=== PATIENT | female | born 1950 | race Caucasian/White ===

== ENCOUNTER 2022-02-01 11:51 | Inpatient (IN) | payer MEDICARE ==
[~2022-02-01] VITALS: Ht 152.4 cm; Wt 52.6 kg
[2022-02-01] MEDS ORDERED: DILTIAZEM HCL 5 MG/ML 5 ML VIAL IV ONE (12:45)
[2022-02-01 12:56] LABS: BASOPHILS # (AUTO) 0.1 (0.0-0.1); BASOPHILS % 0.8 % (0.0-1.0); EOSINOPHILS # (AUTO) 0.5 (0.0-0.4); EOSINOPHILS % 3.3 % (0.0-6.0); HEMOGLOBIN 14.8 g/dL (12.0-16.0); LYMPHOCYTES # (AUTO) 2.6 (1.0-3.2); LYMPHOCYTES % 17.1 % (18.0-39.1); MEAN CORPUSCULAR HEMOGLOBIN 28.7 pg (28-32); MEAN CORPUSCULAR HGB CONC 32.9 g/dL (31-35); MEAN CORPUSCULAR VOLUME 87.4 fL (81-99); MONOCYTES # (AUTO) 1.1 (0.2-0.8); MONOCYTES % 7.1 % (4.4-11.3); NEUTROPHILS # (AUTO) 10.7 (2.1-6.9); NEUTROPHILS % 71.3 % (38.7-80.0); PLATELET COUNT 324 x10e3/uL (140-360); RED BLOOD COUNT 5.15 x10e6/uL (3.6-5.1); RED CELL DISTRIBUTION WIDTH 13.4 % (11.7-14.4)
[2022-02-01] MEDS ORDERED: SODIUM CHLORIDE 0.9% 1000ML 1,000 ML IV SCH (13:00)
[2022-02-01 13:15] LABS: ALBUMIN 3.9 g/dL (3.5-5.0); ALBUMIN/GLOBULIN RATIO 0.9 (0.8-2.0); ANION GAP 17.9 mmol/L (8-16); CALCIUM 9.6 mg/dL (8.4-10.2); CREATININE, SERUM 0.77 mg/dL (0.57-1.11); POTASSIUM 3.9 mmol/L (3.5-5.1)
[2022-02-01 13:45] LABS: FREE T4 (FREE THYROXINE) 1.07 ng/dL (0.8-1.8); THYROID STIMULATING HORMONE 2.026 uIU/mL (0.350-4.940)
[2022-02-01] MEDS ORDERED: SODIUM CHLORIDE FLUSH 10 ML SYR INJ PRN (16:00)
[2022-02-01] MEDS ORDERED: ASPIRIN 81 MG CHEW TAB PO ONE (16:00)
[2022-02-01 18:27] VITALS: BP 283/128
[2022-02-01 18:28] VITALS: BP 227/120
[2022-02-01] MEDS ORDERED: ZOLPIDEM TARTRATE 5 MG TAB PO PRN (19:45)
[2022-02-01] MEDS ORDERED: ONDANSETRON HCL INJ 2MG/ML 2ML 2 MG/ML VIAL IV PRN (19:45)
[2022-02-01] MEDS: DILTIAZEM HCL 125 ML IV SCH (19:57)
[2022-02-01 19:59] VITALS: BP 238/107
[2022-02-01] MEDS ORDERED: ACETAMINOPHEN 650 MG SUPP PR PRN (20:00)
[2022-02-01 20:37] LABS: CREATINE KINASE MB 5.1 ng/mL (0-5.0)
[2022-02-01] MEDS ORDERED: VALSARTAN 160 MG TAB PO ONE (20:45)
[2022-02-01] MEDS ORDERED: LABETALOL HCL 5 MG/ML 20ML VIAL IV STA (22:07)
[2022-02-01] MEDS ORDERED: LABETALOL HCL 20 ML ONE (22:22)
[2022-02-01 22:52] VITALS: BP 174/63
[2022-02-01 23:00] VITALS: BP 196/98
[2022-02-01 23:07] VITALS: BP 174/63
[2022-02-02] VITALS (48 sets, daily range): BP systolic 94–211; BP diastolic 47–163
[2022-02-02] MEDS: LABETALOL HCL 5 MG/ML 20ML VIAL IV PRN ×2 (03:06→07:23)
[2022-02-02] MEDS: DILTIAZEM HCL 125 ML IV SCH (03:59)
[2022-02-02] MEDS ORDERED: DILTIAZEM HCL IV 5MG/ML 25 ML VIAL ONE (04:09)
[2022-02-02] MEDS ORDERED: SODIUM CHLORIDE 0.9% 100 ML ONE (04:09)
[2022-02-02 05:00] LABS: BASOPHILS # (AUTO) 0.1 (0.0-0.1); BASOPHILS % 0.8 % (0.0-1.0); EOSINOPHILS # (AUTO) 0.5 (0.0-0.4); EOSINOPHILS % 3.2 % (0.0-6.0); HEMATOCRIT 42.4 % (34.2-44.1); LYMPHOCYTES # (AUTO) 3.7 (1.0-3.2); LYMPHOCYTES % 23.9 % (18.0-39.1); MEAN CORPUSCULAR HEMOGLOBIN 28.6 pg (28-32); MEAN CORPUSCULAR VOLUME 86.5 fL (81-99); MONOCYTES # (AUTO) 1.3 (0.2-0.8); MONOCYTES % 8.7 % (4.4-11.3); NEUTROPHILS # (AUTO) 9.7 (2.1-6.9); NEUTROPHILS % 62.9 % (38.7-80.0); PLATELET COUNT 319 x10e3/uL (140-360); RED CELL DISTRIBUTION WIDTH 13.4 % (11.7-14.4)
[2022-02-02 05:32] LABS: ANION GAP 13.4 mmol/L (8-16); CALCIUM 9.1 mg/dL (8.4-10.2); CREATININE, SERUM 0.74 mg/dL (0.57-1.11); MAGNESIUM 2.4 MG/DL (1.3-2.1); POTASSIUM 3.4 mmol/L (3.5-5.1)
[2022-02-02] MEDS ORDERED: POTASSIUM CITRATE ER 10 MEQ TAB PO ONE (08:00)
[2022-02-02] MEDS ORDERED: ALPRAZOLAM 0.25 MG TAB PO PRN (08:15)
[2022-02-02] MEDS ORDERED: POTASSIUM CHLORIDE 10MEQ EA PO ONE (08:15)
[2022-02-02] MEDS ORDERED: VALSARTAN 160 MG TAB PO SCH (09:00)
[2022-02-02] MEDS ORDERED: CARVEDILOL 12.5 MG TAB PO SCH (09:00)
[2022-02-02] MEDS: CARVEDILOL 12.5 MG TAB PO SCH ×2 (09:15→17:41)
[2022-02-02] MEDS: TRIAMTERENE/HCTZ 37.5-25 MG TAB PO SCH (09:15)
[2022-02-02] MEDS: VALSARTAN 160 MG TAB PO SCH (09:15)
[2022-02-02] MEDS: ASPIRIN 81 MG ENTERIC COATED PO SCH (09:15)
[2022-02-02 15:43] LABS: CREATINE KINASE MB 2.2 ng/mL (0-5.0)
[2022-02-02] MEDS ORDERED: ENOXAPARIN SOD INJ 40 MG/0.4 ML SYR SC SCH (17:00)
[2022-02-03] VITALS (22 sets, daily range): BP systolic 158–249; BP diastolic 48–185
[2022-02-03] MEDS: LABETALOL HCL 5 MG/ML 20ML VIAL IV PRN (04:33)
[2022-02-03 04:59] LABS: BASOPHILS # (AUTO) 0.1 (0.0-0.1); BASOPHILS % 0.8 % (0.0-1.0); EOSINOPHILS # (AUTO) 0.6 (0.0-0.4); EOSINOPHILS % 5.2 % (0.0-6.0); HEMATOCRIT 42.3 % (34.2-44.1); HEMOGLOBIN 13.9 g/dL (12.0-16.0); LYMPHOCYTES % 40.9 % (18.0-39.1); MEAN CORPUSCULAR HEMOGLOBIN 28.3 pg (28-32); MEAN CORPUSCULAR HGB CONC 32.9 g/dL (31-35); MEAN CORPUSCULAR VOLUME 86.2 fL (81-99); MONOCYTES # (AUTO) 1.1 (0.2-0.8); MONOCYTES % 9.4 % (4.4-11.3); NEUTROPHILS # (AUTO) 5.3 (2.1-6.9); NEUTROPHILS % 43.3 % (38.7-80.0); PLATELET COUNT 331 x10e3/uL (140-360); RED BLOOD COUNT 4.91 x10e6/uL (3.6-5.1); RED CELL DISTRIBUTION WIDTH 13.3 % (11.7-14.4)
[2022-02-03 05:18] LABS: ALBUMIN 3.4 g/dL (3.5-5.0); ALBUMIN/GLOBULIN RATIO 0.9 (0.8-2.0); ANION GAP 14.9 mmol/L (8-16); CALCIUM 8.9 mg/dL (8.4-10.2); CREATININE, SERUM 0.83 mg/dL (0.57-1.11); POTASSIUM 3.9 mmol/L (3.5-5.1)
[2022-02-03 05:39] LABS: CHOL/HDL RATIO 6.2 (3.0-3.6)
[2022-02-03] MEDS: VALSARTAN 160 MG TAB PO SCH (06:46)
[2022-02-03] MEDS: TRIAMTERENE/HCTZ 37.5-25 MG TAB PO SCH (08:21)
[2022-02-03] MEDS: CARVEDILOL 12.5 MG TAB PO SCH (08:21)
[2022-02-03] MEDS: ASPIRIN 81 MG ENTERIC COATED PO SCH (08:21)
[2022-02-03] MEDS ORDERED: PAROXETINE HCL 20 MG TAB PO SCH (10:00)
[2022-02-03] MEDS ORDERED: COREG12.5 MG PO (10:36)
[2022-02-03] MEDS ORDERED: DIOVAN160 MG PO (10:36)
[2022-02-03] MEDS ORDERED: NIFEDIPINE ER30 M1 PO (11:05)
[2022-02-03] MEDS ORDERED: PAXIL10 MG PO (11:06)
== END 2022-02-03 12:03 | disposition home or self-care (01) | DRG 305 ==
LOC: ER 12:10 → ERHOLD 15:48 → MED/SURG3 17:26 → ICU 21:55 → OBSVTOIN 02-02 07:52
PROVIDERS: ADMIT Internal Medicine; ATTEND Internal Medicine
DX: I16.9 Hypertensive crisis, unspecified (principal); I47.1 Supraventricular tachycardia; F41.0 Panic disorder [episodic paroxysmal anxiety]; F41.9 Anxiety disorder, unspecified; I34.1 Nonrheumatic mitral (valve) prolapse; R00.2 Palpitations; Z20.822 Contact with and (suspected) exposure to COVID-19; E87.6 Hypokalemia; I48.0 Paroxysmal atrial fibrillation; Z79.01 Long term (current) use of anticoagulants; Z88.0 Allergy status to penicillin
CPT/HCPCS: 36415; 71046; 76770; 80048; 80053; 80061; 82550; 82553; 83735; 83880; 84439; 84443; 84484; 85025; 93005; 93306; 93880; 93976; 96360; 99284; G0378; J1650; J7030; J7050; U0002

== ENCOUNTER 2023-04-20 20:17 | Inpatient (IN) | payer MEDICARE ==
[~2023-04-20] VITALS: Ht 152.4 cm; Wt 58.1 kg
[~2023-04-20 20:17] MED LIST: COREG12.5 MG PO; DIOVAN160 MG PO; NIFEDIPINE ER30 M1 PO; PAXIL10 MG PO
[2023-04-20 20:53] LABS: BASOPHILS # (AUTO) 0.1 (0.0-0.1); BASOPHILS % 0.8 % (0.0-1.0); EOSINOPHILS # (AUTO) 0.6 (0.0-0.4); EOSINOPHILS % 3.8 % (0.0-6.0); HEMATOCRIT 45.2 % (34.2-44.1); HEMOGLOBIN 15.2 g/dL (12.0-16.0); LYMPHOCYTES # (AUTO) 5.5 (1.0-3.2); LYMPHOCYTES % 32.8 % (18.0-39.1); MEAN CORPUSCULAR HEMOGLOBIN 27.7 pg (28-32); MEAN CORPUSCULAR HGB CONC 33.6 g/dL (31-35); MEAN CORPUSCULAR VOLUME 82.3 fL (81-99); MONOCYTES # (AUTO) 1.3 (0.2-0.8); MONOCYTES % 7.7 % (4.4-11.3); NEUTROPHILS # (AUTO) 9.1 (2.1-6.9); NEUTROPHILS % 54.4 % (38.7-80.0); PLATELET COUNT 378 x10e3/uL (140-360); RED BLOOD COUNT 5.49 x10e6/uL (3.6-5.1); RED CELL DISTRIBUTION WIDTH 12.6 % (11.7-14.4)
[2023-04-20] MEDS ORDERED: SODIUM CHLORIDE 0.9% 1000ML 1,000 ML IV STA (21:08)
[2023-04-20 21:14] LABS: ALBUMIN 4.3 g/dL (3.5-5.0); ALBUMIN/GLOBULIN RATIO 0.9 (0.8-2.0); ANION GAP 17.2 mmol/L (8-16); CALCIUM 10.1 mg/dL (8.4-10.2); CREATININE, SERUM 0.82 mg/dL (0.57-1.11); POTASSIUM 3.2 mmol/L (3.5-5.1)
[2023-04-20] MEDS ORDERED: CLOPIDOGREL BISULFATE 300 MG TAB-DO NOT STOCK PO STA (21:32)
[2023-04-20] MEDS ORDERED: ASPIRIN 325 MG TAB PO STA (21:32)
[2023-04-20] MEDS ORDERED: HYDRALAZINE HCL 20 MG/ML VIAL IV STA (21:37)
[2023-04-20] MEDS ORDERED: ONDANSETRON HCL INJ 2MG/ML 2ML 2 MG/ML VIAL IV PRN (21:45)
[2023-04-20] MEDS ORDERED: Morphine 4mg INJECTION 4 MG/ML INJ IV PRN (21:45)
[2023-04-20] MEDS ORDERED: LORAZEPAM INJ 2 MG/ML VIAL IV STA (21:50)
[2023-04-20] MEDS ORDERED: CLOPIDOGREL BISULFATE 75 MG TAB ONE (21:58)
[2023-04-20] MEDS ORDERED: DIAZEPAM INJ 5 MG/ML 2 ML IV ONE (22:15)
[2023-04-20] MEDS ORDERED: CLOPIDOGREL BISULFATE 75 MG TAB PO ONE (22:30)
[2023-04-20] MEDS ORDERED: HYDRALAZINE HCL 20 MG/ML VIAL ONE (22:59)
[2023-04-20] MEDS ORDERED: HYDRALAZINE HCL 20 MG/ML VIAL IV ONE (23:00)
[2023-04-20] MEDS ORDERED: LABETALOL HCL 5 MG/ML 20ML VIAL IV STA (23:16)
[2023-04-20] MEDS ORDERED: LABETALOL HCL 20 ML ONE (23:18)
[2023-04-21] VITALS (78 sets, daily range): BP systolic 124–252; BP diastolic 44–117; PULSE 60–98; RESP 11–24; TEMP 97.7–98.3; O2SAT 95–100
[2023-04-21] MEDS ORDERED: NICARDIPINE 20MG/200ML PREMIX 200 ML IV SCH (01:45)
[2023-04-21] MEDS: SODIUM CHLORIDE 0.9% 1000ML 1,000 ML IV SCH ×4 (02:04→16:23)
[2023-04-21] MEDS: DIAZEPAM 5 MG TAB PO PRN ×3 (03:43→22:25)
[2023-04-21] MEDS: NICARDIPINE 20MG/200ML PREMIX 200 ML IV SCH (04:15)
[2023-04-21] MEDS ORDERED: POTASSIUM CHLORIDE 20 MEQ TAB CR PO STA (04:45)
[2023-04-21] MEDS ORDERED: HYDRALAZINE HCL 20 MG/ML VIAL IV PRN (05:00)
[2023-04-21] MEDS ORDERED: GUAIFENESIN/DEXTROMETHORPHAN LIQD 5 ML UDC PO PRN (05:00)
[2023-04-21] MEDS ORDERED: MELATONIN 3 MG TAB PO PRN (05:00)
[2023-04-21] MEDS ORDERED: ACETAMINOPHEN 325 MG TAB PO PRN (05:00)
[2023-04-21] MEDS ORDERED: DOCUSATE SODIUM 100 MG CAP PO PRN (05:00)
[2023-04-21] MEDS ORDERED: MAGNESIUM/ALUMINUM/SIMETHICONE 30 ML UDC PO PRN (05:00)
[2023-04-21 06:25] LABS: BASOPHILS # (AUTO) 0.1 (0.0-0.1); BASOPHILS % 0.6 % (0.0-1.0); EOSINOPHILS # (AUTO) 0.4 (0.0-0.4); EOSINOPHILS % 2.5 % (0.0-6.0); HEMATOCRIT 41.4 % (34.2-44.1); HEMOGLOBIN 13.9 g/dL (12.0-16.0); LYMPHOCYTES # (AUTO) 3.7 (1.0-3.2); LYMPHOCYTES % 24.9 % (18.0-39.1); MEAN CORPUSCULAR HEMOGLOBIN 27.6 pg (28-32); MEAN CORPUSCULAR HGB CONC 33.6 g/dL (31-35); MEAN CORPUSCULAR VOLUME 82.1 fL (81-99); MONOCYTES # (AUTO) 1.2 (0.2-0.8); MONOCYTES % 7.9 % (4.4-11.3); NEUTROPHILS # (AUTO) 9.6 (2.1-6.9); NEUTROPHILS % 63.8 % (38.7-80.0); PLATELET COUNT 298 x10e3/uL (140-360); RED BLOOD COUNT 5.04 x10e6/uL (3.6-5.1); RED CELL DISTRIBUTION WIDTH 12.6 % (11.7-14.4)
[2023-04-21] MEDS ORDERED: CLONIDINE HCL0.2 MG PO (06:38)
[2023-04-21 06:45] LABS: ALBUMIN 3.7 g/dL (3.5-5.0); ANION GAP 16.3 mmol/L (8-16); CALCIUM 9.3 mg/dL (8.4-10.2); CREATININE, SERUM 0.74 mg/dL (0.57-1.11); POTASSIUM 3.3 mmol/L (3.5-5.1)
[2023-04-21] MEDS: ASPIRIN 81 MG ENTERIC COATED PO SCH (08:31)
[2023-04-21] MEDS: CLOPIDOGREL BISULFATE 75 MG TAB PO SCH (08:31)
[2023-04-21] MEDS: MULTIVITAMINS/MINERALS TAB PO SCH (08:31)
[2023-04-21] MEDS: MUPIROCIN 2% OINT 22 GM TUBE TOP SCH (08:32)
[2023-04-21] MEDS: CARVEDILOL 12.5 MG TAB PO SCH ×2 (09:00→16:21)
[2023-04-21] MEDS: LOSARTAN POTASSIUM 100 MG TAB PO SCH (09:00)
[2023-04-21] MEDS ORDERED: NICARDIPINE HCL SOLN 25 MG in SODIUM CHLORIDE 0.9% 250ML 240 ML IV PRN (12:00)
[2023-04-21] MEDS: ENOXAPARIN SOD INJ 40 MG/0.4 ML SYR SC SCH (16:25)
[2023-04-21] MEDS: ATORVASTATIN 40 MG TAB PO SCH (20:34)
[2023-04-22] VITALS (78 sets, daily range): BP systolic 137–232; BP diastolic 53–110; PULSE 59–104; RESP 13–28; TEMP 98–98.3; O2SAT 93–100
[2023-04-22] MEDS: MUPIROCIN 2% OINT 22 GM TUBE TOP SCH ×3 (00:21→21:51)
[2023-04-22] MEDS: SODIUM CHLORIDE 0.9% 1000ML 1,000 ML IV SCH (02:21)
[2023-04-22] MEDS: NICARDIPINE 20MG/200ML PREMIX 200 ML IV SCH (04:15)
[2023-04-22] MEDS: DIAZEPAM 5 MG TAB PO PRN ×2 (07:34→18:41)
[2023-04-22] MEDS: LOSARTAN POTASSIUM 100 MG TAB PO SCH (07:35)
[2023-04-22] MEDS: ASPIRIN 81 MG ENTERIC COATED PO SCH (07:36)
[2023-04-22] MEDS: CLOPIDOGREL BISULFATE 75 MG TAB PO SCH (07:36)
[2023-04-22] MEDS: CARVEDILOL 12.5 MG TAB PO SCH ×2 (07:37→16:40)
[2023-04-22] MEDS: MULTIVITAMINS/MINERALS TAB PO SCH (07:39)
[2023-04-22 08:22] LABS: BASOPHILS # (AUTO) 0.1 (0.0-0.1); BASOPHILS % 0.9 % (0.0-1.0); EOSINOPHILS # (AUTO) 0.6 (0.0-0.4); HEMATOCRIT 44.5 % (34.2-44.1); HEMOGLOBIN 14.8 g/dL (12.0-16.0); LYMPHOCYTES # (AUTO) 2.3 (1.0-3.2); MEAN CORPUSCULAR HEMOGLOBIN 27.9 pg (28-32); MEAN CORPUSCULAR HGB CONC 33.3 g/dL (31-35); MEAN CORPUSCULAR VOLUME 83.8 fL (81-99); MONOCYTES # (AUTO) 0.9 (0.2-0.8); MONOCYTES % 6.5 % (4.4-11.3); NEUTROPHILS # (AUTO) 10.4 (2.1-6.9); NEUTROPHILS % 72.3 % (38.7-80.0); PLATELET COUNT 321 x10e3/uL (140-360); RED BLOOD COUNT 5.31 x10e6/uL (3.6-5.1); RED CELL DISTRIBUTION WIDTH 13.2 % (11.7-14.4)
[2023-04-22 08:43] LABS: ALBUMIN 3.7 g/dL (3.5-5.0); ALBUMIN/GLOBULIN RATIO 0.9 (0.8-2.0); ANION GAP 15.5 mmol/L (8-16); CREATININE, SERUM 0.75 mg/dL (0.57-1.11); POTASSIUM 3.5 mmol/L (3.5-5.1)
[2023-04-22 08:55] LABS: CHOL/HDL RATIO 5.9 (3.0-3.6)
[2023-04-22 09:19] LABS: FREE T4 (FREE THYROXINE) 1.35 ng/dL (0.8-1.8); THYROID STIMULATING HORMONE 1.821 uIU/mL (0.350-4.940)
[2023-04-22] MEDS: HYDROCHLOROTHIAZIDE 25 MG TAB PO SCH (10:52)
[2023-04-22] MEDS: POTASSIUM CHLORIDE 20MEQ/100ML 200 ML IV ONE ×2 (10:53→11:04)
[2023-04-22] MEDS ORDERED: POTASSIUM CHLORIDE 10MEQ EA PO ONE (11:15)
[2023-04-22] MEDS ORDERED: SODIUM CHLORIDE 0.9% 100 ML ONE (15:09)
[2023-04-22] MEDS ORDERED: IOPAMIDOL 370 MG/ML 100 ML INFUS..BTL INJ ONE (15:09)
[2023-04-22] MEDS: ENOXAPARIN SOD INJ 40 MG/0.4 ML SYR SC SCH (16:39)
[2023-04-22] MEDS ORDERED: LORAZEPAM INJ 2 MG/ML VIAL IV PRN (18:30)
[2023-04-22] MEDS: ATORVASTATIN 40 MG TAB PO SCH (21:51)
[2023-04-23] VITALS (55 sets, daily range): BP systolic 123–219; BP diastolic 44–139; PULSE 57–81; RESP 11–24; TEMP 96.8–98.1; O2SAT 92–100
[2023-04-23] MEDS: NICARDIPINE 20MG/200ML PREMIX 200 ML IV SCH ×2 (04:15→21:19)
[2023-04-23 06:49] LABS: BASOPHILS # (AUTO) 0.1 (0.0-0.1); BASOPHILS % 0.9 % (0.0-1.0); EOSINOPHILS # (AUTO) 0.8 (0.0-0.4); HEMATOCRIT 39.3 % (34.2-44.1); HEMOGLOBIN 13.1 g/dL (12.0-16.0); LYMPHOCYTES # (AUTO) 3.4 (1.0-3.2); LYMPHOCYTES % 26.1 % (18.0-39.1); MEAN CORPUSCULAR HEMOGLOBIN 27.9 pg (28-32); MEAN CORPUSCULAR HGB CONC 33.3 g/dL (31-35); MEAN CORPUSCULAR VOLUME 83.6 fL (81-99); MONOCYTES # (AUTO) 1.4 (0.2-0.8); MONOCYTES % 10.9 % (4.4-11.3); NEUTROPHILS # (AUTO) 7.2 (2.1-6.9); NEUTROPHILS % 55.7 % (38.7-80.0); PLATELET COUNT 271 x10e3/uL (140-360); RED CELL DISTRIBUTION WIDTH 12.9 % (11.7-14.4)
[2023-04-23 07:12] LABS: ALBUMIN 3.3 g/dL (3.5-5.0); ANION GAP 14.8 mmol/L (8-16); CALCIUM 9.1 mg/dL (8.4-10.2); CREATININE, SERUM 0.82 mg/dL (0.57-1.11); POTASSIUM 3.8 mmol/L (3.5-5.1)
[2023-04-23] MEDS: HYDROCHLOROTHIAZIDE 25 MG TAB PO SCH (08:13)
[2023-04-23] MEDS: CARVEDILOL 12.5 MG TAB PO SCH ×2 (08:14→16:29)
[2023-04-23] MEDS: MULTIVITAMINS/MINERALS TAB PO SCH (08:14)
[2023-04-23] MEDS: CLOPIDOGREL BISULFATE 75 MG TAB PO SCH (08:14)
[2023-04-23] MEDS: ASPIRIN 81 MG ENTERIC COATED PO SCH (08:15)
[2023-04-23] MEDS: LOSARTAN POTASSIUM 100 MG TAB PO SCH ×2 (08:15→21:14)
[2023-04-23] MEDS: MUPIROCIN 2% OINT 22 GM TUBE TOP SCH ×2 (08:16→21:16)
[2023-04-23] MEDS: DIAZEPAM 5 MG TAB PO PRN ×2 (10:50→21:15)
[2023-04-23] MEDS ORDERED: LORAZEPAM INJ 2 MG/ML VIAL IV PRN (11:00)
[2023-04-23] MEDS: ENOXAPARIN SOD INJ 40 MG/0.4 ML SYR SC SCH (16:30)
[2023-04-23] MEDS: ATORVASTATIN 40 MG TAB PO SCH (21:15)
[2023-04-24] VITALS (20 sets, daily range): BP systolic 101–178; BP diastolic 50–101; PULSE 62–88; RESP 16–24; TEMP 97.7–98.4; O2SAT 94–99
[2023-04-24] MEDS: ASPIRIN 81 MG ENTERIC COATED PO SCH (08:54)
[2023-04-24] MEDS: CLOPIDOGREL BISULFATE 75 MG TAB PO SCH (08:55)
[2023-04-24] MEDS: MUPIROCIN 2% OINT 22 GM TUBE TOP SCH ×2 (08:55→21:09)
[2023-04-24] MEDS: CARVEDILOL 12.5 MG TAB PO SCH ×2 (08:55→17:26)
[2023-04-24] MEDS: HYDROCHLOROTHIAZIDE 25 MG TAB PO SCH (08:55)
[2023-04-24] MEDS: MULTIVITAMINS/MINERALS TAB PO SCH (08:55)
[2023-04-24] MEDS: DIAZEPAM 5 MG TAB PO PRN ×2 (11:09→21:15)
[2023-04-24] MEDS: ENOXAPARIN SOD INJ 40 MG/0.4 ML SYR SC SCH (17:26)
[2023-04-24] MEDS: ATORVASTATIN 40 MG TAB PO SCH (21:08)
[2023-04-25] VITALS: BP 126/50; PULSE 62; RESP 20; TEMP 97.8; O2SAT 98
[2023-04-25 04:57] VITALS: BP 153/75; PULSE 71; RESP 20; TEMP 97.7; O2SAT 97
[2023-04-25 06:39] LABS: BASOPHILS # (AUTO) 0.1 (0.0-0.1); EOSINOPHILS # (AUTO) 1.1 (0.0-0.4); EOSINOPHILS % 7.5 % (0.0-6.0); HEMATOCRIT 37.4 % (34.2-44.1); HEMOGLOBIN 12.7 g/dL (12.0-16.0); LYMPHOCYTES # (AUTO) 4.7 (1.0-3.2); LYMPHOCYTES % 33.3 % (18.0-39.1); MEAN CORPUSCULAR VOLUME 82.4 fL (81-99); MONOCYTES # (AUTO) 1.5 (0.2-0.8); NEUTROPHILS # (AUTO) 6.5 (2.1-6.9); NEUTROPHILS % 46.7 % (38.7-80.0); PLATELET COUNT 293 x10e3/uL (140-360); RED BLOOD COUNT 4.54 x10e6/uL (3.6-5.1); RED CELL DISTRIBUTION WIDTH 12.6 % (11.7-14.4)
[2023-04-25 07:06] LABS: ALBUMIN 3.3 g/dL (3.5-5.0); ANION GAP 16.3 mmol/L (8-16); CALCIUM 9.7 mg/dL (8.4-10.2); CREATININE, SERUM 0.89 mg/dL (0.57-1.11); POTASSIUM 4.3 mmol/L (3.5-5.1)
[2023-04-25 07:47] VITALS: BP 169/64; PULSE 68; RESP 18; TEMP 97.5; O2SAT 98
[2023-04-25] MEDS: MULTIVITAMINS/MINERALS TAB PO SCH (08:29)
[2023-04-25] MEDS: HYDROCHLOROTHIAZIDE 25 MG TAB PO SCH (08:30)
[2023-04-25] MEDS: CLOPIDOGREL BISULFATE 75 MG TAB PO SCH (08:30)
[2023-04-25] MEDS: LOSARTAN POTASSIUM 100 MG TAB PO SCH (08:30)
[2023-04-25] MEDS: ASPIRIN 81 MG ENTERIC COATED PO SCH (08:30)
[2023-04-25] MEDS: CARVEDILOL 12.5 MG TAB PO SCH ×2 (08:31→17:59)
[2023-04-25] MEDS: MUPIROCIN 2% OINT 22 GM TUBE TOP SCH (08:31)
[2023-04-25 08:37] VITALS: BP 169/64; PULSE 68; RESP 17; TEMP 98; O2SAT 98
[2023-04-25] MEDS: DIAZEPAM 5 MG TAB PO PRN (08:37)
[2023-04-25] MEDS ORDERED: ONDANSETRON HCL 4 MG ORAL DISINTEGRATING TAB PO PRN (11:30)
[2023-04-25 12:26] VITALS: BP 177/70; PULSE 72; RESP 18; TEMP 97.9; O2SAT 97
[2023-04-25 16:33] VITALS: BP 162/72; PULSE 61; RESP 16; TEMP 97.9; O2SAT 98
[2023-04-25] MEDS: ENOXAPARIN SOD INJ 40 MG/0.4 ML SYR SC SCH (17:00)
[2023-04-25] MEDS ORDERED: ASPIRIN EC81 MG PO (17:30)
[2023-04-25] MEDS ORDERED: ATORVASTATIN CA40 MG PO (17:30)
[2023-04-25] MEDS ORDERED: COREG12.5 MG PO (17:30)
[2023-04-25] MEDS ORDERED: ESIDRIX25 MG PO (17:30)
[2023-04-25] MEDS ORDERED: COZAAR100 MG PO (17:30)
[2023-04-25] MEDS ORDERED: PLAVIX75 MG PO (17:30)
== END 2023-04-25 18:43 | disposition home or self-care (01) | DRG 65 ==
LOC: ER 20:25 → ERHOLD 21:34 → ICU 04-21 02:57 → MED/SURG 04-24 15:35
PROVIDERS: ADMIT Internal Medicine; ATTEND Internal Medicine
DX: I63.233 Cerebral infarction due to unspecified occlusion or stenosis of bilateral carotid arteries (principal); G81.91 Hemiplegia, unspecified affecting right dominant side; I16.1 Hypertensive emergency; I10 Essential (primary) hypertension; R29.702 NIHSS score 2; D72.829 Elevated white blood cell count, unspecified; F17.210 Nicotine dependence, cigarettes, uncomplicated; R47.01 Aphasia; R79.89 Other specified abnormal findings of blood chemistry; F41.0 Panic disorder [episodic paroxysmal anxiety]; F41.9 Anxiety disorder, unspecified; E78.2 Mixed hyperlipidemia; I67.1 Cerebral aneurysm, nonruptured; Z88.0 Allergy status to penicillin; Z20.822 Contact with and (suspected) exposure to COVID-19; Z91.148 Patient's other noncompliance with medication regimen for other reason; Z79.82 Long term (current) use of aspirin
CPT/HCPCS: 36415; 70450; 70544; 70547; 70551; 71045; 80053; 80061; 81241; 81400; 82550; 82607; 83036; 83605; 83735; 83880; 84439; 84443; 84484; 85025; 85303; 85306; 87040; 93005; 93306; 93880; 99284; J1650; J2060; J3360; J3480; J7030; J7050; Q9967